=== PATIENT | female | born 1975 | race Caucasian/White ===

== ENCOUNTER 2020-01-04 14:45 | Outpatient (CLI) | payer OTHER, SELFPAY ==
--- NOTE | ~2020-01-04 | DEXA_ITS ---
Bone Density Report Name: Christoph Mccurdy Age: 44 Sex: Female Ethnicity: White Date of : 1975 Indication: postmenopausal; hysterectomy; Referring Provider: PHYSICIAN NOT ON STAFF Study: Bone densitometry was performed. Exam Date: January 04, 2020 Accession number: [id number] Bone Density: Region BMD T-score Z-score Classification AP Spine (L1, L2, L3) 1.105 0.8 1.1 Normal Femoral Neck (Left) 1.045 1.8 2.1 Normal Total Hip (Left) 1.189 2.0 2.3 Normal Total Hip Bilateral Avg 1.171 1.9 2.2 Normal Femoral Neck (Right) 0.983 1.2 1.6 Normal Total Hip (Right) 1.152 1.7 2.0 Normal World Health Organization criteria for BMD impression classify patients as: Normal (T-score at or above -1.0), Osteopenia (T-score between -1.0 and -2.5), or Osteoporosis (T-score at or below -2.5). 10-year Fracture Risk: FRAX not reported because: All T-scores for Spine Total, Hip Total, Femoral Neck at or above -1.0 Clinical Information Provided by Patient: Has used the following medications: HRT (i.e. estrogen/hormone therapy) Has the following medical conditions: Hysterectomy Patient maximum height was 67 Menopause Age: 43 Drinks caffeinated beverages Onset of menses at age 14 Number of children 1 Impression: The patient has normal bone mass. Discussion: BONE DENSITY IS ABOVE THE MINIMUM DESIRABLE LEVEL AT ALL SKELETAL SITES TESTED. This patient?s bone mineral density is above the minimum desirable level (T-score -1.0 or better) at all sites measured. The patient should follow a healthful lifestyle (good nutrition with adequate calcium and vitamin D, and appropriate weight-bearing exercise). Follow-Up: Consider repeating this study in 5 years or sooner if there is some new clinical indication. Reported by: DARSHANA on 01/04/2020 3:04:00 PM. Reviewed, dictated and finalized at location [facility]HAEL
== END 2020-01-04 14:46 | disposition home or self-care (01) ==
LOC: ANHIMG 14:52
DX: Z13.820 Encounter for screening for osteoporosis (principal)
CPT/HCPCS: 77080